=== PATIENT | male | born 1990 | race Caucasian/White ===

== ENCOUNTER 2020-03-22 14:21 | Emergency (ER) | payer BC ==
[~2020-03-22] VITALS: Ht 175.3 cm; Wt 75.0 kg
[2020-03-22] MEDS ORDERED: SULFAMETHOX/TRIMETH DS 800-160 MG/TABLET PO ONE (15:00)
[2020-03-22] MEDS ORDERED: CefTRIAXone SODIUM 1 GM/VIAL IM ONE (15:00)
[2020-03-22] MEDS ORDERED: IBUPROFEN 400 MG TABLET PO ONE (15:00)
[2020-03-22] MEDS ORDERED: LIDOCAINE/PF 1% 2 ML VIAL IM ONE (15:00)
[2020-03-22 15:51] VITALS: BP 126/68
== END 2020-03-22 15:55 | disposition home or self-care (01) ==
LOC: EMS 14:23
DX: L03.116 Cellulitis of left lower limb (principal)
CPT/HCPCS: 96372; 99283; J0696; J3490